=== PATIENT | female | born 2000 | race Caucasian/White ===

== ENCOUNTER 2021-01-12 12:19 | Outpatient (CLI) | payer BC ==
[~2021-01-12] VITALS: Ht 162.6 cm; Wt 110.0 kg
--- NOTE | 2021-01-12 12:26 | NUR ---
1226-Patient to LR 4 after being seen in office with a non-reactive NST in office. Orders for NST. Assisted into bed and placed on EFM. Assessment complete.
[2021-01-12] MEDS ORDERED: PRENATAL (12:54)
[2021-01-12 13:00] VITALS: BP 123/70; PULSE 98; TEMP 98.7
--- NOTE | 2021-01-12 13:20 | NUR ---
1320-IV to right hand, LR infusing per MD order.
[2021-01-12 13:30] VITALS: BP 106/70; PULSE 85
[2021-01-12 14:00] VITALS: BP 124/69; PULSE 81
--- NOTE | 2021-01-12 14:04 | NUR ---
1404-Patient off EFM to bathroom.
--- NOTE | 2021-01-12 14:15 | NUR ---
1415-Patient provided snack per MD orders. Patient continues to report good movement and denies contractions.
[2021-01-12 14:30] VITALS: BP 121/67; PULSE 75; TEMP 98.4
[2021-01-12 15:00] VITALS: BP 119/55; PULSE 77
--- NOTE | 2021-01-12 15:10 | NUR ---
1510-Patient off EFM to bathroom.
--- NOTE | 2021-01-12 15:16 | NUR ---
1516-Dr. Gill on unit. Reviews FHR monitor.
--- NOTE | 2021-01-12 15:29 | NUR ---
1529-Ultrasound on unit for BPP, patient off EFM.
[2021-01-12 15:30] VITALS: BP 119/66; PULSE 87
--- NOTE | 2021-01-12 15:48 | NUR ---
1548-staff nuclear medicine technologist out to desk to review BPP with MD. Dr. Gill gives order stop EFM monitoring and allow patient to dress and will review discharg plan with patient. 1600-Dr. Gill reviews discharge plan and order to follow up with office for follow up BPP in office Friday. IV discontinued. 1605-Patient ambulatory off unit with significant other.
== END 2021-01-12 16:05 | disposition home or self-care (01) ==
LOC: LDRO 12:19
DX: Z34.90 Encounter for supervision of normal pregnancy, unspecified, unspecified trimester (principal); Z3A.40 40 weeks gestation of pregnancy
CPT/HCPCS: J7120

== ENCOUNTER 2021-01-16 10:09 | Inpatient (IN) | payer BC ==
[~2021-01-16] VITALS: Ht 162.6 cm; Wt 110.0 kg
[~2021-01-16 10:09] MED LIST: PRENATAL
[2021-01-17] VITALS (12 sets, daily range): BP systolic 103–134; BP diastolic 54–88; PULSE 83–105; TEMP 98.2–98.8
--- NOTE | 2021-01-17 18:52 | NUR ---
Ambulatory to unit for [employer] induction, accompanied by significant other.
--- NOTE | 2021-01-17 19:15 | NUR ---
Irregular mild contractions with irritability in between. Pt denies cramping, states "I'm just uncomfortable" Boyfriend attentive at bedside.
[2021-01-17 20:30] LABS: BASO % 0.3 % (0.0-2.0); EOS # 0.1 K/mm3 (0.0-0.7); EOS % 0.8 % (0-4.0); GRAN # 7.7 K/mm3 (1.4-6.5); GRAN % 66.3 % (42.2-75.2); HEMATOCRIT 34.5 % (35.0-45.0); LYMPH # 2.8 K/mm3 (1.2-3.4); LYMPH % 24.5 % (20.0-51.0); MEAN CELL VOLUME 77 fl (80.0-95.0); MEAN CORPUSCULAR HEMOGLOBIN 25 pg (26.0-32.0); MEAN CORPUSCULAR HGB CONC 32 g/dl (33.0-37.0); MEAN PLATELET VOLUME 11.3 fl (7.4-10.4); MONO # 0.8 K/mm3 (0.1-0.6); MONO % 7.2 % (1.7-9.3); PLATELET COUNT 291 K/mm3 (130-400); RED BLOOD COUNT 4.47 M/mm3 (4.10-5.30)
--- NOTE | 2021-01-17 22:15 | NUR ---
Up to bathroom. Plan of care reviewed. Lights dimmed, encouraged to rest
--- NOTE | 2021-01-17 23:45 | NUR ---
FHT's 150's with intermittent declerations to 120'-130's. pt up to bathroom.
[2021-01-18] VITALS (36 sets, daily range): BP systolic 86–156; BP diastolic 43–88; PULSE 66–99; TEMP 97.9–99.8
--- NOTE | 2021-01-18 00:55 | NUR ---
1 liter LR bolus in, IV to INt. Pt up to bathroom, reports 'cramping' a 6 on a 1-10 scale.
--- NOTE | 2021-01-18 01:10 | NUR ---
Vistaril 25mg po. Pt to WL, difficult to maintain FHR tracing r/t body habitus and movement.
--- NOTE | 2021-01-18 02:20 | NUR ---
Pt reports "this cramping hurts a lot worse" up to bathroom.
--- NOTE | 2021-01-18 03:40 | NUR ---
Anesthesia notified of pt request for epidural.
--- NOTE | 2021-01-18 03:50 | NUR ---
Tense with contractions, deep breathing encouraged.IV fluid bolus in progress for epidural.
--- NOTE | 2021-01-18 04:10 | NUR ---
Nuria LEAD ETL DEVELOPER into room for epidural placement. See anesthesia record Pt moved to sit on edge of bed.
--- NOTE | 2021-01-18 04:30 | NUR ---
to LL 0436 BP 108/55. 0442 Ephedrine 10mg IV Push. #3 LR. Pt to WL.
--- NOTE | 2021-01-18 05:18 | NUR ---
EFM tracing maternal heart rate intermittently while pt sitting for epidural.
--- NOTE | 2021-01-18 06:55 | NUR ---
0655: EFM TRACING RECURRENT VARIABLES AND LATE DECELERATIONS INTO THE 90'S. MODERATE VARIABILITY. UNABLE TO CORRECT WITH POSITION CHANGES. NOTIFIED, SEE PHYS.NOTIFICATION. 0700: IUPC AND FSE PLACED PER AT THIS TIME, DIFFICULTY TRACING TOCO DUE TO MATERNAL HABITUS. FSE PLACED PER TORB BY . 0720: AT BEDSIDE, FSE /. NEW FSE PLACED DUE TO EQUIPMENT MALFUNCTION WITH PRIOR DEVICE. PT CONTINUES TO HAVE RECURRENT VARIABLES AND LATE DECELERATIONS AT THIS TIME. 0750: PT COMPLETE PER SVE. EDUCATED ON PUSHING EFFORTS AT THIS TIME. PT REPOSITIONED TO ALLOW FOR BETTER DESCENT PRIOR TO PUSHING. ROOM PREPPED FOR DELIVERY. 0810: PT BEGINS PUSHING, NONREASSURING HEART TONES WITH PUSHING EFFORTS. REMAINS AT 0 STATION. PROLONGED LATE DECELERATIONS WITH CONTRACTIONS AND PUSHING. DECISION BETWEEN PROVIDER AND PATIENT TO PREPARE FOR A CSECTION. ALL CONSENTS SIGNED AND PT PREPPED FOR CSECTION DELIVERY. 0835: DELIVERY OF VIABLE MALE AT THIS TIME BY . NUCHAL X1. TERMINAL MEC NOTED AT DELIVERY. BABY TO WARMER AND CARE ASSUMED BY VALENTINARN. 0925: PT TO PACU FOR CARES PER PROTOCOL. STABLE CONDITION. FUNDUS FIRM AT UMBILICUS, SCANT LOCHIA WITH NO CLOTS. DRESSING TO ADBOMEN CDI. PT DROWSY, VITAL SIGNS STABLE.
--- NOTE | 2021-01-18 10:45 | NUR ---
PT DROWSY AND REMAINS HYPOTENSIVE UPON RETURNING TO PP ROOM. CALL TO HUMBERTO DIGGS. REPORTS HE GAVE SOME PROPOFOL AT THE BEGINNING OF HER SURGERY AND TO ALLOW HER FLUIDS TO CONTINUE RUNNING AND FOR PT TO TAKE A NAP. NO NEW ORDERS AT THIS TIME. WILL CONTINUE TO MONITOR BP.
--- NOTE | 2021-01-18 11:02 | NUR ---
PT'S BP DROPS TO 70'S/40'S. PT STILL GROGGY AND PALE. HUMBERTO PSYCHOLOGY ASSOCIATE NOTIFIED AND AT BEDSIDE. DISCUSSES PT WITH . H&H LAB DRAW ORDERED. PT NAPPING AT THIS TIME. VORB FROM HUMBERTO TO ADMINISTER HESPAN IF BP CONTINUES TO DROP. BP IMPROVING AT THIS TIME TO 90'S/50'S. WILL MONITOR CLOSELY.
[2021-01-18 11:50] LABS: HEMATOCRIT 28.4 % (35.0-45.0)
--- NOTE | 2021-01-18 12:35 | NUR ---
PT BEGINNING TO WAKE UP AND BECOME MORE ALERT. DENIES PAIN. UNABLE TO MOVE BLE. BP CURRENTLY 99/53. FUNDUS FIRM WITH SCANT LOCHIA. STABLE AT THIS TIME.
--- NOTE | 2021-01-18 13:52 | NUR ---
PT SITTING UP IN BED, ATTEMPT AT THIS TIME. INFANT FALLING ASLEEP AT THE BREAST AND MOTHER REPORTS SHE IS "STILL TIRED." THIS NURSE PLACES BABY ON MOTHERS CHEST TO ASSIST WITH SKIN TO SKIN AT THIS TIME. SHOP MECHANIC ROUNDING CURRENTLY AND WILL BE BY TO ASSIST WITH SOON.
--- NOTE | 2021-01-18 15:48 | NUR ---
PT REMAINS IN BED, REPORTS SHE IS UNABLE TO MOVE LEGS BUT CAN FEEL FEET. THIS NURSE HAS PT ATTEMPT TO RAISE LEGS, PT UNABLE AT THIS TIME. IVF INFUSING PER TORB BY . PT STILL FALLING ASLEEP THROUGHOUT CONVERSATION AND REPORTS SHE IS STILL "TIRED FROM NOT GETTING ENOUGH SLEEP LAST NIGHT." HELD BY GRANDMOTHER AT THIS TIME AND PT ASLEEP IN BED. PO PAIN CONTROL ADMINISTERED, PT DENYING PAIN STILL AT THIS TIME. EDUCATED THAT SHORTLY WE ARE GOING TO ATTEMPT TO MOVE LEGS AGAIN AND GET UP OUT OF BED. PT AGREEABLE.
--- NOTE | 2021-01-18 16:30 | NUR ---
THIS NURSE AND UMAIR RN ATTEMPT TO AMBULATE PT AT THIS TIME, PT REPORTS TINGLING TO RIGHT SOUSA AND LEFT KNEE, BUT ABLE TO ELEVATE LEGS AND HOLD FOR 5 SECONDS. ASSISTED TO EDGE OF BED AND ALLOWED LEGS TO DANGLE, PT DENIES DIZZINESS OR LIGHT HEADED. 750CC OF YELLOW URINE FROM CAMARENA AT THIS TIME, CAMARENA STAYS IN PLACE. PT ABLE TO STAND WITH ASSIST X2 FROM STAFF. ABLE TO BEAR WEIGHT WHILE STANDING, BUT WHEN SHE TOOK HER FIRST STEP PT'S LEFT KNEE BUCKLED AND SHE BEGAN TO FALL BACK TOWARDS BED. THIS NURSE AND UMAIR RN SAFELY ASSISTED PT INTO BED. PT STATES "MY LEFT KNEE IS NUMB AND COULDN'T MOVE YET." PT SITTING ON EDGE OF BED. THIS NURSE PROVIDES SHASHANK CARE, NEW PAD PLACED UNDER PT. CAMARENA REMAINS IN PLACE. EPIDURAL REMOVED FROM BACK, PT TOLERATED PROCEDURE WELL. PT EDUCATED TO DO LEG RAISES AND MOVE LEGS WHILE IN BED TO ENCOURAGE SENSATION TO RETURN. AGREEABLE AT THIS TIME. CALL LIGHT WITHIN REACH UPON EXITING. PT EDUCATED TO NOT AMBULATE WITHOUT STAFF PRESENT.
--- NOTE | 2021-01-18 18:12 | NUR ---
PT SITTING UP IN BED BABY, BP 106/53. PT HAS MORE COLOR TO HER SKIN TONE AND IS ALERT AND TALKATIVE. ABLE TO COMPLETE A CONVERSATION WITHOUT FALLING ASLEEP. REPORTS THE SENSATION TO BLE IS "BETTER THAN IT WAS WHEN I STARTED TO FALL" AND IS AGREEABLE TO ATTEMPT TO AMBULATE AGAIN UPON COMPLETION OF . CONSENTS FOR CIRCUMCISION SIGNED AT THIS TIME. PT ORDERS SUPPER WITH THIS NURSE IN ROOM. ENCOURAGED TO DRINK WATER. CAMARENA DRAINING CLEAR YELLOW URINE AT THIS TIME.
[2021-01-19 03:00] VITALS: BP 103/51; PULSE 86; TEMP 98.8
[2021-01-19 07:10] VITALS: BP 104/55; PULSE 80; TEMP 98.4
[2021-01-19] MEDS ORDERED: IBU800 M1 PO (09:00)
[2021-01-19] MEDS ORDERED: PERCOCET 325 MG1 TA2 PO (09:00)
--- NOTE | 2021-01-19 10:11 | NUR ---
Initial visit; Parents thanked Dry End Tester for offering congratulations and God's blessings for the of their son. Dry End Tester thanked family for choosing [facility].
[2021-01-19 16:45] VITALS: BP 117/57; PULSE 98; TEMP 98.1
[2021-01-19 20:00] VITALS: BP 104/62; PULSE 94; TEMP 98.1
[2021-01-20 02:00] VITALS: BP 110/68; PULSE 94; TEMP 97.9
[2021-01-20 08:00] VITALS: BP 108/60; PULSE 83; TEMP 97.8
--- NOTE | 2021-01-20 12:00 | NUR ---
Discharge instructions and follow up care reviewed with pt and at the bedside. Both verbalized an understanding, agreed with the plan and states no questions or concerns at this time.
== END 2021-01-20 12:35 | disposition home or self-care (01) | DRG 788 ==
LOC: LDR 01-17 09:07 → OB 01-18 10:31
PROVIDERS: ADMIT Student in an Organized Health Care Education/Training Program
PROC: 10D00Z1 Extraction of Products of Conception, Low, Open Approach (ICD-10-PCS; principal; 2021-01-17)
PROC: 3E0P7VZ Introduction of Hormone into Female Reproductive, Via Natural or Artificial Opening (ICD-10-PCS; 2021-01-17)
DX: O48.0 Post-term pregnancy (principal); Z3A.41 41 weeks gestation of pregnancy; O76 Abnormality in fetal heart rate and rhythm complicating labor and delivery; O99.344 Other mental disorders complicating childbirth; F41.8 Other specified anxiety disorders; F90.9 Attention-deficit hyperactivity disorder, unspecified type; O99.213 Obesity complicating pregnancy, third trimester; O99.333 Smoking (tobacco) complicating pregnancy, third trimester; F17.290 Nicotine dependence, other tobacco product, uncomplicated; Z37.0 Single live birth
CPT/HCPCS: J0171; J0690; J1885; J2370; J2405; J2590; J2704; J2795; J7120